=== PATIENT | male | born 1995 | race Hispanic/Latino ===

== ENCOUNTER 2018-12-09 11:53 | Outpatient (CLI) | payer OTHER ==
--- NOTE | 2018-12-09 12:09 | RAD ---
Chest 2 views HISTORY: TB screening. FINDINGS: Cardiac silhouette and pulmonary vasculature are unremarkable. Mediastinum is midline. No c onfluent airspace consolidation, pneumothorax, or pleural fluid. 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 IMPRESSION: No active cardiopulmonary abnormalities are demonstrated.
== END 2018-12-09 11:54 | disposition home or self-care (01) ==
LOC: SCSRAD 11:53
PROVIDERS: ATTEND Family Medicine
DX: Z11.1 Encounter for screening for respiratory tuberculosis (principal)
CPT/HCPCS: 71046